=== PATIENT | female | born 1985 | race Caucasian/White ===

== ENCOUNTER → 2021-05-15 16:03 | Outpatient (CLI) | payer OTHER, SELFPAY | PROVIDERS: Visit Provider Physician Assistant | DX: R30.9 Painful micturition, unspecified (principal) | CPT/HCPCS: 87086 ==

== ENCOUNTER → 2022-05-25 14:36 | Outpatient (CLI) | payer OTHER, MEDICAID, SELFPAY ==
--- NOTE | 2022-05-25 | DI.US.S_ITS ---
PROCEDURE: US PELVIC COMPLETE INDICATIONS: Irregular menstruation, unspecified TECHNIQUE: Real-time scanning was performed of the pelvic organs, with image documentation. Additional endovaginal scanning was necessary due to incomplete visualization of the adnexal and endometrial structures by transabdominal scanning. COMPARISON: None. FINDINGS: Uterus: Uterus is anteverted and normal in size at 7.8 x 3.0 x 4.1 cm. The myometrium is homogeneous. The endometrium measures 2.7 mm combined thickness. There is an IUD in expected position. Ovaries: The right ovary measures 4.2 x 1.4 x 3.6 cm. The left ovary measures 2.8 x 1.4 x 2.2 cm. The ovaries have a normal sonographic appearance. There is a 1.7 x 1.3 x 1.7 cm complex cyst in right ovary, most likely a hemorrhagic cyst. Less than 12 follicles can be seen in each ovary. No adnexal masses are seen. Other: Small amount of pelvic fluid is seen in the cul-de-sac and left adnexa. IMPRESSION: 1. There is an IUD in uterus. Endometrium is normal in thickness. 2. A 1.7 x 1.3 x 1.7 cm complex cyst in the right ovary, most likely a hemorrhagic cyst. A short-term follow-up ultrasound is suggested in 6-12 weeks. 3. A small amount of free fluid in the cul-de-sac and left adnexa. We strive to produce accurate, complete, and clear reports of imaging services. To assist us in improving patient care, this report was composed using standard report templates and voice recognition software. Therefore, it may contain abnormal punctuation, insertions and/or omissions. Occasional wrong-word or sound-alike substitutions may occur. Though we review the report and make efforts to correct it, we do recommend that the report be read carefully in proper context to recognize any text inaccuracies. Dictated by: Jayme Whitten M.D. on 05/25/2022 at 17:26 Approved by: Jayme Whitten M.D. on 05/25/2022 at 21:58
== END ==
PROVIDERS: Referring Provider Naturopath; Visit Provider Naturopath
DX: N92.6 Irregular menstruation, unspecified (principal); Z97.5 Presence of (intrauterine) contraceptive device; N83.291 Other ovarian cyst, right side
CPT/HCPCS: 76830; 76856